=== PATIENT | male | born 1955 | race American Indian/Alaskan Native ===

== ENCOUNTER 2022-04-03 20:23 | Observation (INO) | payer OTHER, MEDICARE ==
[2022-04-03] MEDS ORDERED: SODIUM CHLORIDE 0.9% 1000 ML 1,000 ML IV ONE ×2 (21:35→22:00)
--- NOTE | 2022-04-03 21:40 | Emergency Department Report ---
HPI - General Chief Complaint: GI Bleed Time Seen by Provider: 04/03/22 21:16 - HPI HPI: Room 18 The patient is a 67-year-old male present with chief complaint of rectal bleeding. Patient has a remote history of lung CA status post right lobectomy and radiation approximately 18 years ago. Recently there has been concern for recurrence of the lung CA and mets to the brain. Earlier this morning at approximately 10: 00 the patient complained of his "stomach feeling funny" family noticed dark stool and/or blood in his chair so they changed his diaper and did not think anything of it. They state a little later pain again noticed blood on his chair and then noticed bright red blood in his diaper. They called the patient's physician at the [facility] who instructed them to go to the nearest emergency department so they came to this ED. The daughter states she changed his diaper 3 times in a 40-minute. Prior to arrival they were all filled with bright red blood per rectum. Has been no nausea vomiting. Patient complained of fatigue but otherwise denies pain or nausea/vomiting. The patient has not on anticoagulation but does take aspirin daily ED Past Medical Hx - Past Medical History Hx CVA: Yes (Residual left-sided weakness) Hx of Cancer: Yes (Lung CA with brain mets. s/p lobectomy ) Hx COPD: Yes (No home O2) - Surgical History Additional Surgical History: Right lobectomy, left lower extremity fracture repair - Family History Family history: no significant - Social History Smoking Status: Current Every Day Smoker (1 pack/day) Substance Use Type: None (Denies illicit drug use) ED Review of Systems ROS: Stated complaint: RECTAL BLEED Other details as noted in HPI Constitutional: malaise Eyes: denies: eye pain ENT: denies: throat pain Respiratory: no symptoms reported Cardiovascular: denies: chest pain Endocrine: no symptoms reported Gastrointestinal: hematochezia. denies: hematemesis Genitourinary: denies: dysuria Musculoskeletal: denies: back pain Neurological: denies: headache Physical Exam - Physical Exam Vital Signs: Vital Signs 04/03/22 04/03/22 04/03/22 20:33 20:42 20:45 Temperature 98.1 F Pulse Rate 90 79 81 Respiratory 18 21 25 H Rate Blood Pressure 112/67 116/74 O2 Sat by Pulse 97 96 Oximetry 04/03/22 20:59 Temperature Pulse Rate Respiratory 15 Rate Blood Pressure O2 Sat by Pulse 97 Oximetry Physical Exam: GENERAL: The patient is well-developed well-nourished male lying on stretcher not appearing to be in acute distress. [] HEENT: Normocephalic. Atraumatic. Extraocular motions are intact. Patient has moist mucous membranes. NECK: Supple. Trachea midline CHEST/LUNGS: Clear to auscultation. There is no respiratory distress noted. HEART/CARDIOVASCULAR: Regular. There is no tachycardia. There is no gallop rub or murmur. ABDOMEN: Abdomen is soft, nontender. Patient has normal bowel sounds. There is no abdominal distention. SKIN: There is no rash. There is no edema. There is no diaphoresis. NEURO: The patient is awake, alert, and oriented. The patient is cooperative. The patient has no focal neurologic deficits. The patient has normal speech. Patient is hard of hearing but GCS 15 MUSCULOSKELETAL: There is no evidence of acute injury. RECTAL: Small amount of dried blood present in the diaper ED Course Vital Signs 04/03/22 04/03/22 04/03/22 20:33 20:42 20:45 Temperature 98.1 F Pulse Rate 90 79 81 Respiratory 18 21 25 H Rate Blood Pressure 112/67 116/74 O2 Sat by Pulse 97 96 Oximetry 04/03/22 20:59 Temperature Pulse Rate Respiratory 15 Rate Blood Pressure O2 Sat by Pulse 97 Oximetry - Consultations Consultation #1: 04/03/22 22:48 GI paged 04/03/22 23:01 Case discussed with strategic account executive Dr. Booker- Will consult ED Medical Decision Making - Lab Data Result diagrams: 04/03/22 21:44 04/03/22 21:44 Laboratory Tests 04/03/22 04/03/22 04/03/22 21:44 21:44 21:44 WBC 7.4 RBC 4.27 Hgb 13.3 Hct 39.2 MCV 92 MCH 31 MCHC 34 RDW 16.1 H Plt Count 299 Lymph % (Auto) 18.2 Maury % (Auto) 7.1 Eos % (Auto) 0.3 Baso % (Auto) 0.3 Lymph # (Auto) 1.4 Maury # (Auto) 0.5 Eos # (Auto) 0.0 Baso # (Auto) 0.0 Seg Neutrophils % 74.1 H Seg Neutrophils # 5.5 PT 13.5 INR 0.91 APTT 32.6 Sodium 138 Potassium 4.9 Chloride 99.6 Carbon Dioxide 28 Anion Gap 15 BUN 13 Creatinine 0.7 L Estimated GFR > 60 BUN/Creatinine Ratio 19 Glucose 102 H Calcium 10.4 H Total Bilirubin 0.50 AST 18 ALT 13 Alkaline Phosphatase 85 Total Protein 7.5 Albumin 3.9 Albumin/Globulin Ratio 1.1 Blood Type 04/03/22 21:44 WBC RBC Hgb Hct MCV MCH MCHC RDW Plt Count Lymph % (Auto) Maury % (Auto) Eos % (Auto) Baso % (Auto) Lymph # (Auto) Maury # (Auto) Eos # (Auto) Baso # (Auto) Seg Neutrophils % Seg Neutrophils # PT INR APTT Sodium Potassium Chloride Carbon Dioxide Anion Gap BUN Creatinine Estimated GFR BUN/Creatinine Ratio Glucose Calcium Total Bilirubin AST ALT Alkaline Phosphatase Total Protein Albumin Albumin/Globulin Ratio Blood Type O POSITIVE - Differential Diagnosis Diverticulosis, colonic mass, Critical care attestation.: If time is entered above; I have spent that time in minutes in the direct care of this critically ill patient, excluding procedure time. ED Disposition Clinical Impression: Rectal bleeding, Orthostasis Disposition: ADMITTED INPATIENT Is pt being admited?: Yes Does the pt Need Aspirin: No Condition: Stable Forms: Accompanied Note Time of Disposition: 23:07 (Care transferred to hospitalist (Dr. Kellogg))
[2022-04-03 22:25] LABS: Basophils % (Auto) 0.3 % (0.0-1.8); Eosinophils % (Auto) 0.3 % (0.0-4.3); Hematocrit 39.2 % (35.5-45.6); Hemoglobin 13.3 gm/dl (11.8-15.2); Lymphocytes # (Auto) 1.4 K/mm3 (1.2-5.4); Lymphocytes % (Auto) 18.2 % (13.4-35.0); Mean Corpuscular HGB Conc 34 % (32-34); Mean Corpuscular Volume 92 fl (84-94); Monocytes # (Auto) 0.5 K/mm3 (0.0-0.8); Monocytes % (Auto) 7.1 % (0.0-7.3); Platelet Count 299 K/mm3 (140-440); Red Blood Count 4.27 M/mm3 (3.65-5.03); Red Cell Distribution Width 16.1 % (13.2-15.2)
[2022-04-03 22:33] LABS: Alanine Aminotransferase 13 units/L (7-56); Albumin 3.9 g/dL (3.9-5); Blood Urea Nitrogen 13 mg/dL (9-20); Calcium 10.4 mg/dL (8.4-10.2); Hemolysis Index 19
[2022-04-03 22:34] LABS: BUN/Creatinine Ratio 19
[2022-04-03 22:39] LABS: Partial Thromboplastin Time 32.6 Sec. (24.2-36.6)
[2022-04-03 22:43] LABS: INR 0.91 (0.87-1.13)
[2022-04-03] MEDS ORDERED: fentaNYL 100 MCG/2 ML INJ IV ONE (23:33)
[2022-04-03] MEDS ORDERED: ONDANSETRON 4 MG/2 ML INJ IV ONE (23:33)
[2022-04-04] MEDS ORDERED: ACETAMINOPHEN 325 MG TAB PO PRN (00:10)
[2022-04-04] MEDS ORDERED: ONDANSETRON 4 MG/2 ML INJ IV PRN (00:10)
[2022-04-04] MEDS ORDERED: MORPHINE 4 MG/1 ML INJ IV PRN (00:15)
[2022-04-04] MEDS ORDERED: SODIUM CHLORIDE 0.9% 1000 ML 1,000 ML IV SCH (00:15)
[2022-04-04] MEDS ORDERED: MAGNESIUM HYDROXIDE (MOM) ORAL LIQD UDC PO PRN (00:15)
[2022-04-04] MEDS ORDERED: MORPHINE 2 MG/1 ML INJ IV PRN (00:15)
--- NOTE | 2022-04-04 00:31 | History and Physical Report ---
History of Present Illness Date of examination: 04/04/22 Date of admission: 04/04/2022 Chief complaint: Dizziness Rectal Bleeding History of present illness: 67-year-old -Mauritan[place] male with known history of lung cancer status postradiation and lobectomy about 18 years ago presenting to the emergency room today complaining of dizziness. He has also been complaining of black stool with some abdominal pain. Family members who were by the bedside also indicates that patient has had bright red blood per rectum all day today. Patient primary care physician was notified at the [facility] and patient was instructed to report to the nearest emergency room for evaluation. Patient denies any nausea vomiting, no chest pain or shortness of breath, no fever or chills. Work-up in the emergency room today, lab reveals hemoglobin of 13.3 and hematocrit of 39.2. Patient was started on IV fluid and piece hand on-call has been notified and consulted by the ER physician. Past History Past Medical History: COPD, stroke (With residual left-sided weakness), other (Lung cancer with brain mets. Status post lobectomy) Past Surgical History: Other (Right lobectomy, left lower extremity fracture repair) Social history: smoking (Current daily smoker-1 pack/day) Family history: no significant family history Medications and Allergies Allergies Allergy/AdvReac Type Severity Reaction Status Date / Time No Known Allergies Allergy Verified 04/04/22 00:27 Home Medications Medication Instructions Recorded Confirmed Last Taken Type ALBUTEROL NEB's [Proventil 0.083% 1 inhalation INHALATION PRN PRN 04/03/22 04/03/22 Unknown History NEBS] Aspirin [Vazalore] 1 tab PO DAILY 04/03/22 04/03/22 Unknown History Budesonide/Formoterol Fumarate 1 inhalation INHALATION PRN PRN 04/03/22 04/03/22 Unknown History [Budesonide-Formoterol 160-4.5] Donepezil HCl [Donepezil HCl Odt] 5 mg PO DAILY 04/03/22 04/03/22 Unknown History HYDROcodone/ACETAMINOPHEN 1 tab PO PRN PRN 04/03/22 04/03/22 Unknown History [Hydrocodone-Acetamin 5-300 mg] Pregabalin 75 mg PO DAILY 04/03/22 04/03/22 Unknown History Quetiapine Fumarate (Nf) 50 mg PO DAILY 04/03/22 04/03/22 Unknown History Tamsulosin [Flomax] 0.4 mg PO QDAY 04/03/22 04/03/22 Unknown History Review of Systems Constitutional: no fever, no chills Ears, nose, mouth and throat: no nasal congestion, no sore throat Cardiovascular: no chest pain, no palpitations Respiratory: no cough, no shortness of breath Gastrointestinal: BRBPR, no abdominal pain, no nausea, no vomiting, no diarrhea Genitourinary Male: no dysuria, no hematuria, no flank pain, no nocturia Musculoskeletal: no neck pain, no low back pain Integumentary: no rash, no pruritis Neurological: no headaches, no confusion Psychiatric: no anxiety, no depression Endocrine: no polyphagia, no polydipsia, no polyuria, no nocturia Exam - Constitutional Vitals: Temp Pulse Resp BP Pulse Ox 98.1 F 80 14 140/75 98 04/03/22 20:33 04/04/22 00:12 04/04/22 00:12 04/04/22 00:12 04/04/22 00:12 General appearance: Present: no acute distress, well-nourished, other (Dry oral mucosa) - EENT Eyes: Present: PERRL, EOM intact. Absent: scleral icterus ENT: hearing intact, clear oral mucosa, dentition normal - Neck Neck: Present: supple, normal ROM - Respiratory Respiratory effort: normal Respiratory: bilateral: CTA - Cardiovascular Rhythm: regular Heart Sounds: Present: S1 & S2. Absent: gallop, systolic murmur, diastolic murmur, rub, click - Extremities Extremities: no ischemia, pulses intact, pulses symmetrical, No edema, normal temperature, normal color, Full ROM Peripheral Pulses: within normal limits - Abdominal General gastrointestinal: Present: soft, non-tender, non-distended, normal bowel sounds. Absent: mass - Integumentary Integumentary: Present: clear, warm, dry, normal turgor. Absent: rash - Musculoskeletal Musculoskeletal: strength equal bilaterally, left sided weakness - Psychiatric Psychiatric: appropriate mood/affect, intact judgment & insight, memory intact - Neurologic Neurologic: CNII-XII intact, moves all extremities Results - Labs CBC & Chem 7: 04/04/22 05:24 04/03/22 21:44 Labs: Abnormal lab results 04/03/22 04/03/22 Range/Units 21:44 21:44 RDW 16.1 H (13.2-15.2) % Seg Neutrophils % 74.1 H (40.0-70.0) % Creatinine 0.7 L (0.8-1.3) mg/dL Glucose 102 H (75-100) mg/dL Calcium 10.4 H (8.4-10.2) mg/dL Assessment and Plan Assessment: 1. Rectal bleeding 2. Orthostatic hypotension 3. History of lung cancer with metastasis to the brain. 4. Status post lobectomy Plan: 1. Patient admitted to the medical floor. 2. We will monitor hemoglobin/hematocrit 3. Geophysical Drafter has been consulted for evaluation and recommendations. 4. We will monitor vital signs closely. 5. Patient placed n.p.o. meanwhile. DVT prophylaxis: Sequential compression device. CODE STATUS: Full code
[2022-04-04] MEDS ORDERED: DEXTROSE 50% IN WATER (25GM) 50 ML SYRINGE IV ONE (04:45)
[2022-04-04] MEDS: DEXTROSE 10% IN WATER 1,000 ML IV SCH ×2 (04:59→16:31)
[2022-04-04 06:41] LABS: Basophils % (Auto) 0.3 % (0.0-1.8); Eosinophils % (Auto) 0.7 % (0.0-4.3); Hematocrit 36.6 % (35.5-45.6); Lymphocytes % (Auto) 17.2 % (13.4-35.0); Mean Corpuscular HGB Conc 33 % (32-34); Mean Corpuscular Volume 92 fl (84-94); Monocytes # (Auto) 0.6 K/mm3 (0.0-0.8); Monocytes % (Auto) 9.5 % (0.0-7.3); Platelet Count 272 K/mm3 (140-440); Red Blood Count 3.97 M/mm3 (3.65-5.03); Red Cell Distribution Width 16.4 % (13.2-15.2)
[2022-04-04 07:00] LABS: Blood Urea Nitrogen 9 mg/dL (9-20); Calcium 8.9 mg/dL (8.4-10.2); Hemolysis Index 1
[2022-04-04 07:02] LABS: BUN/Creatinine Ratio 13
--- NOTE | 2022-04-04 11:12 | Progress Note ---
Assessment and Plan Assessment and plan: 67-year-old -Nigerian male with known history of lung cancer status postradiation and lobectomy about 18 years ago presenting to the emergency room complaining of dizziness. He has also had been complaining of black stool with some abdominal pain. Family members who were by the bedside also indicated that patient had bright red blood per rectum all day [employer]. Patient primary care physician was notified at the [facility] and patient was instructed to report to the nearest emergency room for evaluation. Work-up in the emergency room, lab revealed hemoglobin of 13.3 and hematocrit of 39.2. Hematochezia Orthostatic hypotension History of lung cancer with brain mets. S/p lobectomy 04/04/2022. Await GI consultation for further recommendations. Patient with no active bleeding or melena reported. H&H remained stable this morning. History Interval history: No new issues overnight Hospitalist Physical - Constitutional Vitals: Temp Pulse Resp BP Pulse Ox 98.3 F 83 18 105/67 99 04/04/22 08:00 04/04/22 09:55 04/04/22 08:00 04/04/22 08:00 04/04/22 08:00 General appearance: Present: no acute distress, well-nourished, other (Dry oral mucosa) - EENT Eyes: Present: PERRL, EOM intact ENT: hearing intact, clear oral mucosa, dentition normal - Neck Neck: Present: supple, normal ROM - Respiratory Respiratory effort: normal Respiratory: bilateral: CTA - Cardiovascular Rhythm: regular Heart Sounds: Present: S1 & S2. Absent: gallop, rub - Extremities Extremities: no ischemia, No edema, Full ROM - Abdominal General gastrointestinal: soft, non-tender, non-distended, normal bowel sounds - Integumentary Integumentary: Present: clear, warm, dry - Neurologic Neurologic: CNII-XII intact, moves all extremities Results - Labs CBC & Chem 7: 04/04/22 05:24 04/04/22 05:24 Labs: Laboratory Last Values WBC 6.1 K/mm3 (4.5-11.0) 04/04/22 05:24 RBC 3.97 M/mm3 (3.65-5.03) 04/04/22 05:24 Hgb 12.0 gm/dl (11.8-15.2) 04/04/22 05:24 Hct 36.6 % (35.5-45.6) 04/04/22 05:24 MCV 92 fl (84-94) 04/04/22 05:24 MCH 30 pg (28-32) 04/04/22 05:24 MCHC 33 % (32-34) 04/04/22 05:24 RDW 16.4 % (13.2-15.2) H 04/04/22 05:24 Plt Count 272 K/mm3 (140-440) 04/04/22 05:24 Lymph % (Auto) 17.2 % (13.4-35.0) 04/04/22 05:24 Evangeline % (Auto) 9.5 % (0.0-7.3) H 04/04/22 05:24 Eos % (Auto) 0.7 % (0.0-4.3) 04/04/22 05:24 Baso % (Auto) 0.3 % (0.0-1.8) 04/04/22 05:24 Lymph # (Auto) 1.0 K/mm3 (1.2-5.4) L 04/04/22 05:24 Evangeline # (Auto) 0.6 K/mm3 (0.0-0.8) 04/04/22 05:24 Eos # (Auto) 0.0 K/mm3 (0.0-0.4) 04/04/22 05:24 Baso # (Auto) 0.0 K/mm3 (0.0-0.1) 04/04/22 05:24 Seg Neutrophils % 72.3 % (40.0-70.0) H 04/04/22 05:24 Seg Neutrophils # 4.4 K/mm3 (1.8-7.7) 04/04/22 05:24 PT 13.5 Sec. (12.2-14.9) 04/03/22 21:44 INR 0.91 (0.87-1.13) 04/03/22 21:44 APTT 32.6 Sec. (24.2-36.6) 04/03/22 21:44 Sodium 139 mmol/L (137-145) 04/04/22 05:24 Potassium 4.9 mmol/L (3.6-5.0) 04/04/22 05:24 Chloride 102.6 mmol/L (98-107) 04/04/22 05:24 Carbon Dioxide 29 mmol/L (22-30) 04/04/22 05:24 Anion Gap 12 mmol/L 04/04/22 05:24 BUN 9 mg/dL (9-20) 04/04/22 05:24 Creatinine 0.7 mg/dL (0.8-1.3) L 04/04/22 05:24 Estimated GFR > 60 ml/min 04/04/22 05:24 BUN/Creatinine Ratio 13 % 04/04/22 05:24 Glucose 122 mg/dL (75-100) H 04/04/22 05:24 POC Glucose 145 mg/dL (70-105) H 04/04/22 05:29 Calcium 8.9 mg/dL (8.4-10.2) 04/04/22 05:24 Total Bilirubin 0.50 mg/dL (0.1-1.2) 04/03/22 21:44 AST 18 units/L (5-40) 04/03/22 21:44 ALT 13 units/L (7-56) 04/03/22 21:44 Alkaline Phosphatase 85 units/L (35-129) 04/03/22 21:44 Total Protein 7.5 g/dL (6.3-8.2) 04/03/22 21:44 Albumin 3.9 g/dL (3.9-5) 04/03/22 21:44 Albumin/Globulin Ratio 1.1 % 04/03/22 21:44 Blood Type O POSITIVE 04/03/22 21:44 Antibody Screen Negative 04/03/22 21:44 Microbiology: Microbiology 04/03/22 22:02 Stool Stool Occult Blood (NAVEEN) - Final Active Medications - Current Medications Current Medications: Generic Name Dose Route Start Last Admin Trade Name Freq PRN Reason Stop Dose Admin Acetaminophen 650 mg 04/04/22 00:10 Acetaminophen 325 Mg Tab PO Q4H PRN Pain MILD(1-3)/Fever >100.5/SIMS Dextrose 1,000 mls @ 75 mls/hr 04/04/22 05:00 04/04/22 04:59 D10w IV 75 mls/hr DIRECT DIANA Administration Magnesium Hydroxide 30 ml 04/04/22 00:15 Magnesium Hydroxide (Mom) Oral Liqd Udc PO Q4H PRN Constipation Morphine Sulfate 2 mg 04/04/22 00:15 Morphine 2 Mg/1 Ml Inj IV Q4H PRN Pain, Moderate (4-6) Morphine Sulfate 4 mg 04/04/22 00:15 Morphine 4 Mg/1 Ml Inj IV Q4H PRN Pain , Severe (7-10) Ondansetron HCl 4 mg 04/04/22 00:10 Ondansetron 4 Mg/2 Ml Inj IV Q8H PRN Nausea And Vomiting Sodium Chloride 10 ml 04/04/22 10:00 04/04/22 10:54 Sodium Chloride 0.9% 10 Ml Flush Syringe IV 10 ml BID DIANA Administration Sodium Chloride 10 ml 04/04/22 00:10 Sodium Chloride 0.9% 10 Ml Flush Syringe IV PRN PRN LINE FLUSH
--- NOTE | 2022-04-04 14:04 | Gastroenterology Consultation ---
History of Present Illness - Reason for Consult Consult date: 04/04/22 melena Requesting physician: BECKI PARDO - History of Present Illness Spoke with daughter, Tangela, at [phone] patient sent in for BRBPR, filled his depends depends x 3 no known recent colonoscopy patient home meds reviewed/updated/reconciled Past History Past Medical History: COPD, stroke (With residual left-sided weakness), other (Lung cancer with brain mets. Status post lobectomy) Past Surgical History: Other (Right lobectomy, left lower extremity fracture repair) Social history: smoking (Current daily smoker-1 pack/day) Family history: no significant family history Medications and Allergies Allergies Allergy/AdvReac Type Severity Reaction Status Date / Time No Known Allergies Allergy Verified 04/04/22 00:27 Home Medications Medication Instructions Recorded Confirmed Last Taken Type ALBUTEROL NEB's [Proventil 0.083% 1 inhalation INHALATION PRN PRN 04/03/22 04/03/22 Unknown History NEBS] Aspirin [Vazalore] 1 tab PO DAILY 04/03/22 04/03/22 Unknown History Budesonide/Formoterol Fumarate 1 inhalation INHALATION PRN PRN 04/03/22 04/03/22 Unknown History [Budesonide-Formoterol 160-4.5] Donepezil HCl [Donepezil HCl Odt] 5 mg PO DAILY 04/03/22 04/03/22 Unknown History HYDROcodone/ACETAMINOPHEN 1 tab PO PRN PRN 04/03/22 04/03/22 Unknown History [Hydrocodone-Acetamin 5-300 mg] Pregabalin 75 mg PO DAILY 04/03/22 04/03/22 Unknown History Quetiapine Fumarate (Nf) 50 mg PO DAILY 04/03/22 04/03/22 Unknown History Tamsulosin [Flomax] 0.4 mg PO QDAY 04/03/22 04/03/22 Unknown History Active Meds: Active Medications Acetaminophen (Acetaminophen 325 Mg Tab) 650 mg PO Q4H PRN PRN Reason: Pain MILD(1-3)/Fever >100.5/SIMS Dextrose (D10w) 1,000 mls @ 75 mls/hr IV DIRECT DIANA Last Admin: 04/04/22 04:59 Dose: 75 mls/hr Magnesium Hydroxide (Magnesium Hydroxide (Mom) Oral Liqd Udc) 30 ml PO Q4H PRN PRN Reason: Constipation Morphine Sulfate (Morphine 2 Mg/1 Ml Inj) 2 mg IV Q4H PRN PRN Reason: Pain, Moderate (4-6) Morphine Sulfate (Morphine 4 Mg/1 Ml Inj) 4 mg IV Q4H PRN PRN Reason: Pain , Severe (7-10) Ondansetron HCl (Ondansetron 4 Mg/2 Ml Inj) 4 mg IV Q8H PRN PRN Reason: Nausea And Vomiting Sodium Chloride (Sodium Chloride 0.9% 10 Ml Flush Syringe) 10 ml IV BID DIANA Last Admin: 04/04/22 10:54 Dose: 10 ml Sodium Chloride (Sodium Chloride 0.9% 10 Ml Flush Syringe) 10 ml IV PRN PRN PRN Reason: LINE FLUSH Review of Systems - Review of Systems ROS unobtainable: due to mental status All systems: negative Exam - Constitutional Vital Signs: Temp Pulse Resp BP Pulse Ox 98.3 F 83 18 105/67 99 04/04/22 08:00 04/04/22 09:55 04/04/22 08:00 04/04/22 08:00 04/04/22 08:00 General appearance: no acute distress - EENT Eyes: EOM intact - Neck Neck: supple - Respiratory Respiratory effort: normal - Cardiovascular Rhythm: regular - Gastrointestinal General gastrointestinal: Present: soft - Integumentary Integumentary: Present: dry - Musculoskeletal Musculoskeletal: normal - Neurologic Neurological: disoriented - Labs CBC & Chem 7: 04/04/22 05:24 04/04/22 05:24 Lab Results: Laboratory Results - last 24 hr 04/03/22 04/03/22 04/03/22 21:44 21:44 21:44 WBC 7.4 RBC 4.27 Hgb 13.3 Hct 39.2 MCV 92 MCH 31 MCHC 34 RDW 16.1 H Plt Count 299 Lymph % (Auto) 18.2 Barton % (Auto) 7.1 Eos % (Auto) 0.3 Baso % (Auto) 0.3 Lymph # (Auto) 1.4 Barton # (Auto) 0.5 Eos # (Auto) 0.0 Baso # (Auto) 0.0 Seg Neutrophils % 74.1 H Seg Neutrophils # 5.5 PT 13.5 INR 0.91 APTT 32.6 Sodium 138 Potassium 4.9 Chloride 99.6 Carbon Dioxide 28 Anion Gap 15 BUN 13 Creatinine 0.7 L Estimated GFR > 60 BUN/Creatinine Ratio 19 Glucose 102 H POC Glucose Calcium 10.4 H Total Bilirubin 0.50 AST 18 ALT 13 Alkaline Phosphatase 85 Total Protein 7.5 Albumin 3.9 Albumin/Globulin Ratio 1.1 Blood Type Antibody Screen 04/03/22 04/04/22 04/04/22 21:44 04:35 05:24 WBC 6.1 RBC 3.97 Hgb 12.0 Hct 36.6 MCV 92 MCH 30 MCHC 33 RDW 16.4 H Plt Count 272 Lymph % (Auto) 17.2 Barton % (Auto) 9.5 H Eos % (Auto) 0.7 Baso % (Auto) 0.3 Lymph # (Auto) 1.0 L Barton # (Auto) 0.6 Eos # (Auto) 0.0 Baso # (Auto) 0.0 Seg Neutrophils % 72.3 H Seg Neutrophils # 4.4 PT INR APTT Sodium Potassium Chloride Carbon Dioxide Anion Gap BUN Creatinine Estimated GFR BUN/Creatinine Ratio Glucose POC Glucose 55 L Calcium Total Bilirubin AST ALT Alkaline Phosphatase Total Protein Albumin Albumin/Globulin Ratio Blood Type O POSITIVE Antibody Screen Negative 04/04/22 04/04/22 04/04/22 05:24 05:29 12:16 WBC RBC Hgb Hct MCV MCH MCHC RDW Plt Count Lymph % (Auto) Barton % (Auto) Eos % (Auto) Baso % (Auto) Lymph # (Auto) Barton # (Auto) Eos # (Auto) Baso # (Auto) Seg Neutrophils % Seg Neutrophils # PT INR APTT Sodium 139 Potassium 4.9 Chloride 102.6 Carbon Dioxide 29 Anion Gap 12 BUN 9 Creatinine 0.7 L Estimated GFR > 60 BUN/Creatinine Ratio 13 Glucose 122 H POC Glucose 145 H 100 Calcium 8.9 Total Bilirubin AST ALT Alkaline Phosphatase Total Protein Albumin Albumin/Globulin Ratio Blood Type Antibody Screen Assessment and Plan differential diagnosis includes hemorrhoids, rest of ddx other rectal path such as proctitis, diverticular, polyp, etc recommend monitor clinically and trend hgb; suspect will not need colonoscopy as most likely rectal outlet source - Patient Problems (1) Rectal bleeding Current Visit: Yes Status: Acute
--- NOTE | 2022-04-05 09:31 | Discharge Summary ---
Providers - Providers Date of Admission: 04/04/22 00:10 Date of discharge: 04/05/22 Attending physician: BECKI PARDO 04/03/22 23:00 Consult to Physician [CONS] Urgent Comment: Consulting Provider: LIZZETH BEE Physician Instructions: Reason For Exam: GI bleed/rectal bleeding 04/04/22 11:10 Consult to Physician [CONS] Routine Comment: Consulting Provider: LEXII ANTHONY Physician Instructions: Reason For Exam: GIB Primary care physician: MEDIA ASSOCIATE Hospitalization Reason for admission: Hematochezia Condition: Stable Hospital course: 67-year-old -Danish male with known history of lung cancer status postradiation and lobectomy about 18 years ago presenting to the emergency room complaining of dizziness. He has also had been complaining of black stool with some abdominal pain. 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 Patient primary care physician was notified at the [facility] and patient was instructed to report to the nearest emergency room for evaluation. Work-up in the emergency room, lab revealed hemoglobin of 13.3 and hematocrit of 39.2. The patient was admitted with diagnosis of hematochezia, BRBPR, orthostatic hypotension and history of lung cancer with brain mets. The patient had no active bleeding during hospitalization. GI evaluated the patient and felt the differential diagnosis including hemorrhoids versus some other rectal path etiology such as diverticular disease or polyps. Patient's H&H remained stable and thus GI suspected no need for colonoscopy as most likely rectal outlet source. Therefore, patient is felt to have received maximal hospital benefit and can be discharged home. Patient is to follow-up with GI as an outpatient. GI discussed the case with the daughterTangela Disposition: 01 HOME / SELF CARE / HOMELESS Final Discharge Diagnosis (Prints w/discharge instructions): Hematochezia, BRBPR, orthostatic hypotension,hx lung ca with brain mets Core Measure Documentation - Palliative Care Palliative Care/ Comfort Measures: Not Applicable - Core Measures Any of the following diagnoses?: none Exam - Constitutional Vitals: Temp Pulse Resp BP Pulse Ox 98.2 F 77 18 113/64 96 04/05/22 07:47 04/05/22 07:47 04/05/22 07:47 04/05/22 07:47 04/05/22 07:47 General appearance: Present: no acute distress, well-nourished - EENT Eyes: Present: PERRL ENT: hearing intact, clear oral mucosa - Neck Neck: Present: supple, normal ROM - Respiratory Respiratory effort: normal Respiratory: bilateral: CTA - Cardiovascular Heart Sounds: Present: S1 & S2. Absent: rub, click - Extremities Extremities: pulses symmetrical, No edema Peripheral Pulses: within normal limits - Abdominal General gastrointestinal: Present: soft, non-tender, non-distended, normal bowel sounds Male genitourinary: Present: normal - Integumentary Integumentary: Present: clear, warm, dry - Musculoskeletal Musculoskeletal: gait normal, strength equal bilaterally - Psychiatric Psychiatric: appropriate mood/affect, intact judgment & insight - Neurologic Neurologic: CNII-XII intact, moves all extremities Plan Activity: advance as tolerated Weight Bearing Status: Weight Bear as Tolerated Diet: regular Follow up with: PRIMARY CARE, [Primary Care Provider] - 7 Days Forms: Accompanied Note
--- NOTE | 2022-04-05 10:47 | Gastroenterology Progress Note ---
Assessment and Plan differential diagnosis includes hemorrhoids, rest of ddx other rectal path such as proctitis, diverticular, polyp, etc No repeat hemoglobin yet today. As long as remains stable can discharge from GI standpoint GI will sign off please call us back if we can be of any further assistance - Patient Problems (1) Rectal bleeding Current Visit: Yes Status: Acute Subjective Date of service: 04/05/22 Principal diagnosis: gi bleed Interval history: Patient still remains poor historian. I spoke with his nurse, no overt bleeding overnight. Hemoglobin stable. Objective - Constitutional Vitals: Temp Pulse Resp BP Pulse Ox 98.2 F 77 18 113/64 96 04/05/22 07:47 04/05/22 07:47 04/05/22 07:47 04/05/22 07:47 04/05/22 07:47 General appearance: no acute distress - EENT Eyes: EOM intact - Respiratory Respiratory effort: normal - Gastrointestinal General gastrointestinal: Present: soft, non-tender - Integumentary Integumentary: Present: dry - Labs CBC & Chem 7: 04/04/22 05:24 04/04/22 05:24 Labs: Laboratory Results - last 24 hr 04/04/22 04/04/22 04/05/22 12:16 16:03 07:49 POC Glucose 100 87 91
[2022-04-05 13:32] VITALS: BP 121/73
== END 2022-04-05 13:50 | disposition home or self-care (01) ==
LOC: ED 20:23 → INTOOBSV 04-04 00:10 → 4A 04-04 00:10
PROVIDERS: ADMIT Internal Medicine Geriatric Medicine; ATTEND Hospitalist
DX: K62.5 Hemorrhage of anus and rectum (principal); I95.9 Hypotension, unspecified; C34.90 Malignant neoplasm of unspecified part of unspecified bronchus or lung; C79.31 Secondary malignant neoplasm of brain; J44.9 Chronic obstructive pulmonary disease, unspecified; F17.210 Nicotine dependence, cigarettes, uncomplicated; Z79.899 Other long term (current) drug therapy; Z98.890 Other specified postprocedural states; Z79.82 Long term (current) use of aspirin
CPT/HCPCS: 36415; 80048; 80053; 82271; 82962; 85025; 85610; 85730; 86850; 86900; 86901; 96361; 96374; 96375; 99284; G0378; J2405; J3010; J3490; J7030

== ENCOUNTER 2022-04-13 10:08 | Outpatient (CLI) | payer OTHER ==
--- NOTE | 2022-04-13 11:52 | Cat Scan Report ---
CT CHEST WITH CONTRAST INDICATION / CLINICAL INFORMATION: R93. Primary lung cancer with adenopathy TECHNIQUE: Axial CT images were obtained through the chest after IV contrast. All CT scans at this location are performed using CT dose reduction for ALARA by means of automated exposure control. COMPARISON: None available. FINDINGS: Diffuse emphysematous changes seen within the lungs. Some interstitial thickening with some interstit ial nodularity throughout the right upper lung. There is a slightly oblong area of density adjacent t o the fissure within the right lower lung measuring 1.5 x 0.8 cm. Left pneumonectomy changes are note d. There is fluid within the left postsurgical site with pleural thickening. Pleural calcifications o n the left are identified. Surgical clips are seen in left hilum. There is suggested right hilar riki opathy. No surrounding the right upper lung bronchus and right hilum are suggested. Trachea appears n ormal. Some subcarinal enlarged nodes also seen. Right hilar nodes measure up to 2 cm. Heart size kayla ears normal. Mildly prominent left axillary nodes are seen. When the more prominent axillary nodes me asures 1.4 x 0.8 cm chronic changes throughout the bones of the left chest wall posteriorly with area s of sclerosis and bony irregularity. Scoliotic curvature the spine ADDITIONAL FINDINGS: None. IMPRESSION: 1. Postsurgical change with pneumonectomy. There is fluid in the pneumonectomy site with diffuse pleu ral thickening. Constipation. Chronic overlying only changes in the ribs. 2. Prominent right hilar nodes suggested measuring 2 cm. Given patient's history of lung carcinoma fi ndings are concerning for metastatic pop disease in the right. Bronchoscopy sampling could be perfo rmed 3 Diffuse emphysematous change with chronic interstitial change throughout the right lung. There are areas of interstitial nodularity and densities throughout the right upper lung. There is an additiona l oblong density in the right lower lung measuring 1.5 x 0.8 cm. A PET/CT examination could be perfor med for further evaluation of hilar node and pulmonary nodules. Signer Name: Timothy Burrows MD Signed: 04/13/2022 11:47 AM Workstation Name: [id number]
== END 2022-04-13 10:09 | disposition home or self-care (01) ==
LOC: CT 10:08
DX: C34.90 Malignant neoplasm of unspecified part of unspecified bronchus or lung (principal); J92.9 Pleural plaque without asbestos; J84.9 Interstitial pulmonary disease, unspecified; K59.00 Constipation, unspecified; R59.9 Enlarged lymph nodes, unspecified
CPT/HCPCS: 71260; Q9967